=== PATIENT | male | born 1955 | race Caucasian/White ===

== ENCOUNTER 2022-03-17 11:27 | Emergency (ER) | payer BC, SELFPAY ==
[2022-03-17 11:34] VITALS: BP 198/107; PULSE 66; RESP 16; TEMP 36.6; O2SAT 99
--- NOTE | 2022-03-17 11:41 | ED.EAR ---
HPI - Ear Problem General Chief complaint: Ear Stated complaint: Loss of Hearing Rt Ear Time Seen by Provider: 03/17/22 11:41 History of Present Illness HPI Narrative: Rakan Boateng is a 66 yo male with no PMH who [facility] with complaints of right ear stuffiness and decreased hearing x5 days. States he was moving and woke up with a sensation of being an airplane and unable to make his ear open up and has had decreased hearing since last Tuesday Patient has no doctor and had denied to the nurse having any medical history but when asked about diastolic congestive heart failure states that he has had that and aware his blood pressure is very high; he has not seen a doctor in years Related Data Allergies Allergy/AdvReac Type Severity Reaction Status Date / Time No Known Drug Allergies Allergy Unknown Other Verified 03/17/22 11:31 Review of Systems Review of Systems: CONSTITUTIONAL: Denies fever, chills, sweats. EYES: Denies visual changes, redness, discharge. ENT: Denies rhinorrhea, congestion, sore throat, right otalgia. CARDIOVASCULAR: Denies chest pain, palpitations, edema. RESPIRATORY: Denies dyspnea, wheezing, cough GASTROINTESTINAL: Denies abdominal pain, nausea, vomiting, diarrhea. GENITOURINARY: Denies dysuria, hematuria, abnormal discharge SKIN: Denies rash or itching. NEUROLOGIC: Denies numbness, or focal weakness. PSYCHIATRIC: Denies anxiety or depression. PMFSH Past Medical History Medical History Unspecified diastolic (congestive) heart failure Family History Family History Sibling Malignant neoplasm of prostate Father Family history of pancreatic cancer Family history of coronary artery disease Social History Social History Smoking status: Former smoker Smoking end date: 09/26/98 Alcohol intake: current Comments At time of signature, I agree with nursing past medical, surgical, social and family history. There is no relevant family history pertinent to the presenting complaint. Exam Narrative: GENERAL: This is a well-nourished, well-developed patient, in mild distress. HEAD: normocephalic, atraumatic. EYES: PERRL. Sclera clear/white. Vision is grossly intact. EARS: External ears normal, auditory canals erythema and R with drainage, TMs normal without perforation. Hearing grossly intact. NOSE: External nose normal without nasal discharge, nares without redness, no rhinorrhea. THROAT: Mucous membranes moist, NECK: Neck supple, non-tender CARDIOVASCULAR: Regular rate and rhythm without murmurs, gallops, or rubs. RESPIRATORY: Clear to auscultation. Breath sounds equal bilaterally. No wheezes, rales, or rhonchi. GASTROINTESTINAL: not performed SKIN: warm, intact with no suspicious lesions or rash, good texture and turgor. NEURO: awake, alert, and oriented to person, place and time. There were no obvious focal neurologic abnormalities. Steady gait EXTREMITIES: Normal range of motion. 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
[2022-03-17 12:01] VITALS: BP 182/102
== END 2022-03-17 12:10 | disposition home or self-care (01) ==
PROVIDERS: Emergency Provider Nurse Practitioner
DX: H66.91 Otitis media, unspecified, right ear (principal); I50.9 Heart failure, unspecified
CPT/HCPCS: 99213; G0463